=== PATIENT | female | born 1995 | race Caucasian/White ===

== ENCOUNTER 2022-08-29 16:09 | Emergency (ER) | payer OTHER, SELFPAY ==
--- NOTE | ~2022-08-29 | CT_ITS ---
EXAMINATION: CT ABDOMEN AND PELVIS WITH CONTRAST CLINICAL INFORMATION: Right lower quadrant abdominal pain. COMPARISON: None available. TECHNIQUE: Multidetector volumetric images were obtained from the superior aspect of the liver through the pubic symphysis following administration 85 mL of Omnipaque 350 intravenous contrast. Sagittal and coronal reformatted images were obtained on the technologist's workstation. Oral Contrast: No. This CT examination was performed using dose optimization techniques as appropriate, variously including the following: *Automated exposure control. *Adjustment of mA and/or kV according to patient size (this includes techniques or standardized protocols for targeted exams where dose is matched to indication/reason for exam; i.e. extremities or head). *Use of iterative reconstruction technique. DLP: 359 mGy-cm FINDINGS: LUNG BASES: The visualized lung bases are unremarkable. LIVER, GALLBLADDER, AND BILIARY TREE: The liver is normal in size, shape, and attenuation. No focal hepatic lesion or biliary ductal dilatation is present. The gallbladder is unremarkable with no evidence of radiopaque gallstones, gallbladder wall thickening, or obvious pericholecystic inflammatory changes. PANCREAS: Unremarkable. SPLEEN: Unremarkable. ADRENAL GLANDS: Unremarkable. KIDNEYS AND URETERS: The kidneys are normal in size, shape, and attenuation. No hydronephrosis, hydroureter, or calculi seen. No perinephric stranding. BLADDER: Unremarkable. GASTROINTESTINAL TRACT: The small and large bowel are unremarkable. The appendix is unremarkable. ABDOMINAL WALL: No significant hernia is appreciated. LYMPH NODES: Normal. VASCULAR: Unremarkable. PELVIC VISCERA: There is a rounded 4.1 cm simple-appearing cyst in the right adnexal region likely ovarian. Trace free fluid in the cul-de-sac. Left ovary and uterus unremarkable. OSSEOUS STRUCTURES: Unremarkable. CT/CT abdomen pelvis w IV con IMPRESSION: 1. Right ovarian cyst. 2. Trace free fluid in the cul-de-sac likely physiologic. 3. Normal appendix. Fleischner guidelines were followed.
--- NOTE | 2022-08-29 16:12 | ED_ITS ---
HPI - General Adult General Chief complaint: Abdominal Pain <CON Farr - Last Filed: 08/29/22 16:16> Stated complaint: appendicitis ? <CON Farr - Last Filed: 08/29/22 16:16> Time Seen by Provider: 08/29/22 17:26 <CON Farr - Last Filed: 08/29/22 16:16> Source: patient, RN notes reviewed and old records reviewed <Truman Flores - Last Filed: 08/29/22 18:56> Mode of arrival: ambulatory <Truman Flores - Last Filed: 08/29/22 18:56> Limitations: no limitations <Truman Flores - Last Filed: 08/29/22 18:56> History of Present Illness HPI narrative: 27-year-old female with past medical history significant for anxiety presents for evaluation of abdominal pain. Patient reports for about 1 week she has had right lower abdominal pain that is migrating somewhat to the right mid upper abdomen. She reports having had vomiting 3 days ago and has had decreased appetite since Her pain is constant but with intermittent changes in intensity. Currently her pain is a 5/10 and achy. She denies any burning with urination, blood in the urine. She states she has a history of UTIs but this feels different Denies any fevers or chills but endorses increased fatigue over the last week <Truman Flores - Last Filed: 08/29/22 18:56> Related Data Allergies/adverse reactions: Allergies Allergy/AdvReac Type Severity Reaction Status Date / Time No Known Allergies Allergy Verified 08/29/22 16:16 <CON Farr - Last Filed: 08/29/22 16:16> Review of Systems Constitutional: Constitutional: Reports as per HPI, Denies chills, Denies fatigue, Denies fever(s) and Denies headache(s) <Truman Flores - Last Filed: 08/29/22 18:56> ENT: Denies headache(s) <Truman Flores - Last Filed: 08/29/22 18:56> Cardiovascular: Cardiovascular: Denies chest pain and Denies dyspnea <Truman Flores - Last Filed: 08/29/22 18:56> Respiratory: Respiratory: Denies cough and Denies dyspnea <Truman Flores Last Filed: 08/29/22 18:56> Gastrointestinal: Gastrointestinal: Reports abdominal pain, Reports nausea and Reports vomiting <Truamn Flores Last Filed: 08/29/22 18:56> Genitourinary: Genitourinary: Denies dysuria <Truman Hood Last Filed: 08/29/22 18:56> Neurologic: Denies headache(s) and Denies focal weakness <Truman Hood Last Filed: 08/29/22 18:56> Endocrine: Endocrine: Denies fatigue <Truman Hood Last Filed: 08/29/22 18:56> PMFSH Social History Social History: Social History Alcohol intake: never Smoked in Last 30 Days: No Use of substances other than those prescribed or required for medical reasons: No Advance Directives: No Advance Directives Information Provided: Yes <CON Farr - Last Filed: 08/29/22 16:16> Physical Exam ED Vital Signs: Vital Signs - 24 hr 08/29/22 16:17 08/29/22 18:38 Temperature 98.8 F Pulse Rate 65 66 Respiratory Rate 14 14 Blood Pressure 120/76 107/63 Pulse Oximetry 100 100 Oxygen Delivery Method Room Air Room Air BMI result Body Mass Index 25.4 <CON Farr - Last Filed: 08/29/22 16:16> Vital Signs - 24 hr 08/29/22 16:17 08/29/22 18:38 Temperature 98.8 F Pulse Rate 65 66 Respiratory Rate 14 14 Blood Pressure 120/76 107/63 Pulse Oximetry 100 100 Oxygen Delivery Method Room Air Room Air BMI result Body Mass Index 25.4 <Truman Flores Last Filed: 08/29/22 18:56> Const General: healthy appearing, comfortable, no acute distress, alert and awake <Truman Flores Last Filed: 08/29/22 18:56> Nutritional Appearance: well nourished <Truman Flores Last Filed: 08/29/22 18:56> Orientation/consciousness: patient oriented x3 <Truman Flores Last Filed: 08/29/22 18:56> HENMT Head: Yes normocephalic and Yes atraumatic < Last Filed: 08/29/22 18:56> Throat: Yes posterior oropharynx normal < Last Filed: 08/29/22 18:56> Eyes Eyelids: Yes eyelids normal < Last Filed: 08/29/22 18:56> Conjunctivae: conjunctivae normal < Last Filed: 08/29/22 18:56> Sclerae: sclerae normal < Last Filed: 08/29/22 18:56> Corneas: corneas normal < Last Filed: 08/29/22 18:56> Pupils: Equal, round and reactive pupils present < Last Filed: 08/29/22 18:56> EOM: EOMs intact bilaterally < Last Filed: 08/29/22 18:56> Neck Neck: Yes full ROM < Last Filed: 08/29/22 18:56> Resp Effort & Inspection: normal respiratory effort, able to speak in complete sentences, no audible wheezes and not labored < Last Filed: 08/29/22 18:56> Auscultation: clear to auscultation bilaterally < Last Filed: 08/29/22 18:56> Cardio Rate: regular rate < Last Filed: 08/29/22 18:56> Rhythm: regular rhythm < Last Filed: 08/29/22 18:56> GI Inspection: No distended < Last Filed: 08/29/22 18:56> Palpation (GI): Soft to palpation, not firm, Tenderness to palpation present (GI) in the RLQ and in the RUQ; Marie's sign negative, obturator sign negative and psoas sign negative and Guarding due to palpation present (GI) in the RLQ < Last Filed: 08/29/22 18:56> Auscultation: normoactive bowel sounds < - Last Filed: 08/29/22 18:56> Skin General skin exam: no rashes or lesions noted and elasticity normal <Truman O Last Filed: 08/29/22 18:56> Neuro General: patient oriented x3 <Truman O' Last Filed: 08/29/22 18:56> Cranial nerves: Yes CN's II-XII intact bilaterally, Yes Equal, round and reactive pupils present and Yes Bilaterally intact EOM present <Truman O Last Filed: 08/29/22 18:56> Cognition (Neuro): normal cognition <Truman O - Last Filed: 08/29/22 18:56> Extrem Other: Moving all extremities well without any obvious deformities <Truman Howard Last Filed: 08/29/22 18:56> Course Course Course Narrative: RME performed by Zamzam Whalen PA-C. Patient is a 27 year old assigned female at presenting to the emergency department with abdominal pain. Labs, imaging, and swab ordered. Patient placed back in the waiting room pending room availability and results. <CON Farr - Last Filed: 08/29/22 16:16> Reevaluation(s) Reevaluation #1: Patient resting comfortably, discussed CT scans are with the patient. Offered pelvic ultrasound which the patient declines, I have a very low suspicion for ovarian torsion <Truman HowardRo - Last Filed: 08/29/22 18:56> Time: 18:53 <Truman Erwiny - Last Filed: 08/29/22 18:56> Medications Administered Discontinued Medications Generic Name Dose Route Start Last Admin Trade Name Freq PRN Reason Stop Dose Admin Iohexol 100 ml 08/29/22 17:14 08/29/22 17:15 Iohexol 350 Mg/Ml 100 Ml Infus..Btl IV 08/29/22 17:15 85 ml ONCE ONE Administration <CON Farr - Last Filed: 08/29/22 16:16> Medications Administered Discontinued Medications Generic Name Dose Route Start Last Admin Trade Name Freq PRN Reason Stop Dose Admin Iohexol 100 ml 08/29/22 17:14 08/29/22 17:15 Iohexol 350 Mg/Ml 100 Ml Infus..Btl IV 08/29/22 17:15 85 ml ONCE ONE Administration <Truman Erwiny - Last Filed: 08/29/22 18:56> Medical Decision Making Medical Decision Making [facility] Narrative: 27-year-old female presents for evaluation of right lower abdominal pain x1 week. She is tender and guarding right lower quadrant. Her pain is radiating up to the right mid upper abdomen. Negative Marie sign. Patient has no leukocytosis, no fever, I feel that appendicitis and cholecystitis are less likely given that her symptoms started 1 week ago and she has no laboratory sejal l sign changes. There is no evidence of UTI in a patient has no urinary complaints. A CT scan was evaluated to help rule out acute appendicitis. Patient's pain may be related to constipation versus muscle strain or viral etiology. Patient is not , she is due for her menstrual cycle within the next week <Truman Flores - Last Filed: 08/29/22 18:56> Differential Diagnosis Abdominal pain Constipation Muscle strain Acute appendicitis Ovarian cyst Cholelithiasis Acute cholecystitis <Truman Flores - Last Filed: 08/29/22 18:56> Lab Data [facility] Lab Attestation statement: I reviewed the patient's lab results. <Truman Flores - Last Filed: 08/29/22 18:56> No significant lab abnormalities <Truman Flores - Last Filed: 08/29/22 18:56> Result Diagrams: 08/29/22 16:30 08/29/22 16:30 <CON Farr - Last Filed: 08/29/22 16:16> Labs: Lab Results 08/29/22 08/29/22 08/29/22 Range/Units 16:30 16:30 16:42 WBC 8.8 (4.8-10.8) X10*3/uL RBC 4.09 L (4.20-5.50) X10*6/uL Hgb 12.5 (12.0-16.0) g/dl Hct 36.3 L (37.0-47.0) % MCV 88.8 (80.0-98.0) fL MCH 30.6 (27.0-33.0) pg MCHC 34.4 (31.0-35.0) g/dl RDW 11.5 (11.0-16.0) % Plt Count 279 (160-400) X10*3/uL MPV 8.9 L (9.4-12.3) fL Immature Gran % (Auto) 0.2 (0.0-0.4) % Neut % (Auto) 58.0 (45-73) % Lymph % (Auto) 28.3 (20-40) % Rice % (Auto) 9.5 (2-11) % Eos % (Auto) 3.2 (0-4) % Baso % (Auto) 0.8 (0-2) % Lymph # (Auto) 2.5 (1.2-4.9) X10*3/uL Rice # (Auto) 0.8 (0.1-1.2) X10*3/uL Eos # (Auto) 0.3 (0.0-0.4) X10*3/uL Baso # (Auto) 0.1 (0.0-0.2) X10*3/uL Abs Immat Gran (auto) 0.02 (0.00-0.03) X10*3/uL Absolute Neuts (auto) 5.1 (2.0-8.3) x10*3/uL Absolute Nucleated RBC 0.000 (0.0-0.012) X10*3/uL Nucleated RBC % (auto) 0.0 (0.0-0.2) /100WBC Sodium 139 (135-145) mmol/L Potassium 4.0 (3.3-5.1) mmol/L Chloride 108 (96-108) mmol/L Carbon Dioxide 26 (22-29) mmol/L Anion Gap 9 L (12-20) BUN 8 L (9-16) mg/dL Creatinine 0.68 (0.5-1.4) mg/dL Estim Creat Clear Calc 103.4 Estimated GFR > 60 Random Glucose 86 (60-115) mg/dL Calcium 8.6 (8.4-10.2) mg/dL Magnesium 2.0 (1.6-2.6) mg/dL Total Bilirubin 0.6 (0.0-1.0) mg/dL AST 15 (5-31) U/L ALT 6 (0-31) U/L Alkaline Phosphatase 55 (39-117) U/L Total Protein 6.4 L (6.5-8.0) g/dL Albumin 4.1 (3.5-5.0) g/dL Beta HCG, Quant < 2 mIU/mL Urine Color Yellow Urine Appearance Clear Urine pH 8.0 (5.0-9.0) Ur Specific [place] 1.015 (1.005-1.025) Urine Protein Negative (Neg-Trace) mg/dL Urine Glucose (UA) Negative (Negative) mg/dL Urine Ketones Negative (Negative) mg/dL Urine Blood Negative (Negative) Urine Nitrite Negative (Negative) Ur Leukocyte Esterase Trace H (Negative) Urine RBC 0-2 (0-2) /HPF Urine WBC 0-5 (0-5) /HPF Ur Squamous Epith Cells 0-2 (0-2) /HPF Urine Bacteria None Seen (None Seen) Hyaline Casts 0-2 (0-2) /LPF <CON Farr - Last Filed: 08/29/22 16:16> Lab Results 08/29/22 08/29/22 08/29/22 Range/Units 16:30 16:30 16:42 WBC 8.8 (4.8-10.8) X10*3/uL RBC 4.09 L (4.20-5.50) X10*6/uL Hgb 12.5 (12.0-16.0) g/dl Hct 36.3 L (37.0-47.0) % MCV 88.8 (80.0-98.0) fL MCH 30.6 (27.0-33.0) pg MCHC 34.4 (31.0-35.0) g/dl RDW 11.5 (11.0-16.0) % Plt Count 279 (160-400) X10*3/uL MPV 8.9 L (9.4-12.3) fL Immature Gran % (Auto) 0.2 (0.0-0.4) % Neut % (Auto) 58.0 (45-73) % Lymph % (Auto) 28.3 (20-40) % Rice % (Auto) 9.5 (2-11) % Eos % (Auto) 3.2 (0-4) % Baso % (Auto) 0.8 (0-2) % Lymph # (Auto) 2.5 (1.2-4.9) X10*3/uL Rice # (Auto) 0.8 (0.1-1.2) X10*3/uL Eos # (Auto) 0.3 (0.0-0.4) X10*3/uL Baso # (Auto) 0.1 (0.0-0.2) X10*3/uL Abs Immat Gran (auto) 0.02 (0.00-0.03) X10*3/uL Absolute Neuts (auto) 5.1 (2.0-8.3) x10*3/uL Absolute Nucleated RBC 0.000 (0.0-0.012) X10*3/uL Nucleated RBC % (auto) 0.0 (0.0-0.2) /100WBC Sodium 139 (135-145) mmol/L Potassium 4.0 (3.3-5.1) mmol/L Chloride 108 (96-108) mmol/L Carbon Dioxide 26 (22-29) mmol/L Anion Gap 9 L (12-20) BUN 8 L (9-16) mg/dL Creatinine 0.68 (0.5-1.4) mg/dL Estim Creat Clear Calc 103.4 Estimated GFR > 60 Random Glucose 86 (60-115) mg/dL Calcium 8.6 (8.4-10.2) mg/dL Magnesium 2.0 (1.6-2.6) mg/dL Total Bilirubin 0.6 (0.0-1.0) mg/dL AST 15 (5-31) U/L ALT 6 (0-31) U/L Alkaline Phosphatase 55 (39-117) U/L Total Protein 6.4 L (6.5-8.0) g/dL Albumin 4.1 (3.5-5.0) g/dL Beta HCG, Quant < 2 mIU/mL Urine Color Yellow Urine Appearance Clear Urine pH 8.0 (5.0-9.0) Ur Specific [place] 1.015 (1.005-1.025) Urine Protein Negative (Neg-Trace) mg/dL Urine Glucose (UA) Negative (Negative) mg/dL Urine Ketones Negative (Negative) mg/dL Urine Blood Negative (Negative) Urine Nitrite Negative (Negative) Ur Leukocyte Esterase Trace H (Negative) Urine RBC 0-2 (0-2) /HPF Urine WBC 0-5 (0-5) /HPF Ur Squamous Epith Cells 0-2 (0-2) /HPF Urine Bacteria None Seen (None Seen) Hyaline Casts 0-2 (0-2) /LPF <Truman Flores - Last Filed: 08/29/22 18:56> Radiology Impression Discussion of test interpretation with radiology: I have reviewed the radiologist's reading. (Right ovarian cyst) <Truman Flores - Last Filed: 08/29/22 18:56> Tests considered The following testing was considered but not selected: Pelvic ultrasound to rule out torsion. Patient declines this time which I feel is appropriate. The patient is quite comfortable without any analgesia given. <Truman Flores - Last Filed: 08/29/22 18:56> Discharge Plan Discharge Clinical Impression: Cyst of right ovary <CON Farr - Last Filed: 08/29/22 16:16> Patient Disposition: Home, Self-Care <CON Farr - Last Filed: 08/29/22 16:16> Instructions: Ovarian Cyst (ED) <CON Farr - Last Filed: 08/29/22 16:16> Additional Instructions: Your CT scan showed that your appendix was within normal limits. You do have a have a 4.1 cm right ovarian cyst Follows up with your primary doctor/speedometer inspector However if her pain becomes severe, unrelenting and constant return for re-evaluation to rule out ovarian torsion <CON Farr Last Filed: 08/29/22 16:16>
[2022-08-29 16:17] VITALS: BP 120/76; PULSE 65; RESP 14; O2SAT 100; BMI 25.4
[2022-08-29 16:36] LABS: MANUAL DIFF FLAG NO
[2022-08-29 16:37] LABS: Basophils Absolute Auto 0.1 X10*3/uL (0.0-0.2); Basophils Percent Auto 0.8 % (0-2); Eosinophils Absolute Auto 0.3 X10*3/uL (0.0-0.4); Eosinophils Percent Auto 3.2 % (0-4); Hematocrit 36.3 % (37.0-47.0); Hemoglobin 12.5 g/dl (12.0-16.0); Imm Gran Abs Auto 0.02 X10*3/uL (0.00-0.03); Imm Gran Pct Auto 0.2 % (0.0-0.4); Lymphocytes Absolute Auto 2.5 X10*3/uL (1.2-4.9); Lymphocytes Percent Auto 28.3 % (20-40); Mean Corpuscular HGB Conc 34.4 g/dl (31.0-35.0); Mean Corpuscular Hemoglobin 30.6 pg (27.0-33.0); Mean Corpuscular Volume 88.8 fL (80.0-98.0); Mean Platelet Volume 8.9 fL (9.4-12.3); Monocytes Absolute Auto 0.8 X10*3/uL (0.1-1.2); Monocytes Percent Auto 9.5 % (2-11); Neutrophils Absolute Auto 5.1 x10*3/uL (2.0-8.3); Platelet Count 279 X10*3/uL (160-400); Red Blood Count 4.09 X10*6/uL (4.20-5.50); Red Cell Distribution Width 11.5 % (11.0-16.0); White Blood Count 8.8 X10*3/uL (4.8-10.8)
[2022-08-29 16:53] LABS: Appearance Urine Clear; Color Urine Yellow; Glucose Urine UA Negative (Negative); Leukocyte Esterase Urine Trace (Negative); Nitrite Urine Negative (Negative); Specific Gravity - Urine 1.015 (1.005-1.025); UMIC TRIGGER UACC YES; Urine Blood Negative (Negative); Urine Ketones Negative (Negative); Urine Protein Negative (Neg-Trace)
[2022-08-29 16:58] LABS: Bacteria Urine None Seen (None Seen); Hyaline Casts Urine 0-2 /LPF (0-2); RBC Urine 0-2 /HPF (0-2); Squamous Epithelial Cell Urine 0-2 /HPF (0-2); WBC Urine 0-5 /HPF (0-5)
[2022-08-29 17:01] LABS: Alanine Aminotransferase 6 U/L (0-31); Albumin Level 4.1 g/dL (3.5-5.0); Alkaline Phosphatase 55 U/L (39-117); Anion Gap 9 (12-20); Aspartate Amino Transferase 15 U/L (5-31); Bilirubin Total 0.6 mg/dL (0.0-1.0); Blood Urea Nitrogen 8 mg/dL (9-16); Calcium 8.6 mg/dL (8.4-10.2); Carbon Dioxide 26 mmol/L (22-29); Chloride 108 mmol/L (96-108); Creatinine Clr Calc Pharmacy 103.4; Estimated Glomerular Filt Rate > 60; Glucose Random 86 mg/dL (60-115); Sodium 139 mmol/L (135-145); Total Protein 6.4 g/dL (6.5-8.0)
[2022-08-29 17:04] LABS: HCG Quantitative < 2 mIU/mL
[2022-08-29] MEDS: iohexoL 350 MG/ML 100 ML INFUS..BTL IV (17:15)
[2022-08-29 18:38] VITALS: BP 107/63; PULSE 66; RESP 14; TEMP 37.1; O2SAT 100
== END 2022-08-29 19:17 | disposition home or self-care (01) ==
PROVIDERS: Physician Assistant Medical; Emergency Provider Emergency Medicine
DX: N83.201 Unspecified ovarian cyst, right side (principal); R10.31 Right lower quadrant pain; F41.9 Anxiety disorder, unspecified; Z79.899 Other long term (current) drug therapy
CPT/HCPCS: 36415; 74177; 80053; 81001; 83735; 84702; 85025; 99284; Q9967